=== PATIENT | male | born 1980 | race African-American/Black ===

== ENCOUNTER 2018-09-07 00:11 | Emergency (ER) | payer SELFPAY ==
[~2018-09-07] VITALS: Ht 170.2 cm; Wt 72.6 kg
[2018-09-07 01:48] VITALS: BP 150/82
--- NOTE | 2018-09-07 01:58 | Emergency Room Report ---
History of Present Illness General Chief Complaint: Behavioral Complaint Source: EMS Present Illness HPI This patient has multiple social problems but no medical problems. He is homeless and requesting to sleep here, requesting that we obtain shoes for him requesting that I transport him to another hospital if I don't do these things for him. No cp, no sob, no abd pain, no vomiting, no fever, no head injury. He comes to us b/c passerby/neighbor called police who brought him in. Pt. admits to being on psych meds but doesn't know names and says that is not why he is here. No old EMR here. Allergies: Uncoded Allergies: POLLEN (Allergy, Unknown, 09/07/18) Nursing Documentation-[facility] History Of Psychiatric Problem: Yes - Psychosis Review of Systems Constitutional: Reports: no symptoms Eye: Reports: no symptoms ENT: Reports: no symptoms Respiratory: Reports: no symptoms Cardiovascular: Reports: no symptoms Gastrointestinal: Reports: no symptoms Genitourinary: Reports: no symptoms Musculoskeletal: Reports: no symptoms Skin: Reports: no symptoms Psychiatric: Reports: no symptoms Neurological: Reports: no symptoms Endocrine: Reports: no symptoms Hematologic/Lymphatic: Reports: no symptoms Allergic: Reports: no symptoms All Other Systems: negative except mentioned in HPI Physical Exam Vital Signs Date Time Temp Pulse Resp B/P (MAP) Pulse Ox O2 Delivery O2 Flow Rate FiO2 09/07/18 00:09 98.1 84 16 150/82 100 Room Air Sp02 EP Interpretation: reviewed, normal, other - poor hygiene, disheveled General Appearance: normal inspection, well appearing, no apparent distress, alert, GCS 15, non-toxic Head: normocephalic, atraumatic Eyes: bilateral eye normal inspection, bilateral eye PERRL, bilateral eye EOMI ENT: normal ENT inspection, hearing grossly normal, normal pharynx, no angioedema, normal voice, moist mucus membranes Neck: normal inspection, full range of motion, supple, no meningismus, no bony tend Respiratory: normal inspection, lungs clear, normal breath sounds, no rhonchi, no respiratory distress, no retraction, no accessory muscle use, no wheezing Cardiovascular #1: normal inspection, regular rate, rhythm, no edema Gastrointestinal: normal inspection, normal bowel sounds, non tender, soft, no mass, non-distended Musculoskeletal: gait/station normal, normal range of motion Neurologic: normal inspection, alert, oriented x3, responsive, motor strength/ tone normal Psychiatric: normal inspection, memory normal, no suicidal/homicidal ideation, no delusions, anxious Suicide Risk Assessment: Suicidal Ideation: No Had intent to initiate attempt: No Pt's plan for suicide attempt: No Has means to complete attempt: No Skin: normal inspection, normal color, no rash, warm/dry Medical Decision Making Diagnostic Impression: Primary Impression: Behavioral disorder ER Course There is no acute medical pathology; there are numerous social issues. Pt. offered Tylenol and then d/c. Last Vital Signs Date Time Temp Pulse Resp B/P (MAP) Pulse Ox O2 Delivery O2 Flow Rate FiO2 09/07/18 00:09 98.1 84 16 150/82 100 Room Air Disposition: HOME, SELF-CARE Condition: Stable Referrals: NOT CHOSEN IPA/,REFERRING (PCP) Patient Instructions: Chronic Pain Julián Higuera M.D. Sep 07, 2018 01:58
== END 2018-09-07 00:56 | disposition home or self-care (01) ==
LOC: EDBD 00:11 → EMR 00:52
DX: F29 Unspecified psychosis not due to a substance or known physiological condition (principal); Z59.0 Homelessness; Z79.899 Other long term (current) drug therapy
CPT/HCPCS: 99282